=== PATIENT | male | born 1980 | race Caucasian/White ===

== ENCOUNTER 2016-08-27 08:17 | Emergency (ER) | payer SELFPAY ==
[~2016-08-27 08:17] MED LIST: ACYCLOVIR400 MG PO; AMOXICILLIN500 M3 PO; AMOXICILLIN500 MG PO; ANAPROX DS550 MG PO; ATIVAN1 MG PO; DOXYCYCLINE MO100 MG PO; FLONASE 0.05% 121 EA NAS; FLONASE ALLERG9.9 ML NAS; FLONASE0.05 MG/AC NS; IBU-8800 MG PO; MOTRIN800 MG PO; Motrin,Rufen800 MG PO; NKHM; PHENERGAN W/ DE30 ML PO; PHENERGAN W/CO120 ML PO; PREDNICOT10 MG PO; PREDNICOT20 MG PO; PREDNISONE10 MG PO; ROBITUSSIN AC 110 ML PO; ZANTAC 150150 MG PO; ZITHROMAX Z PA250 MG PO
[2016-08-27] MEDS ORDERED: PREDNISONE50 MG PO (08:43)
== END 2016-08-27 09:20 | disposition home or self-care (01) ==
LOC: ED 08:17
DX: S16.1XXA Strain of muscle, fascia and tendon at neck level, initial encounter (principal); X58.XXXA Exposure to other specified factors, initial encounter; Y93.89 Activity, other specified; Y92.89 Other specified places as the place of occurrence of the external cause; Y99.9 Unspecified external cause status

== ENCOUNTER 2018-03-07 14:10 | Emergency (ER) | payer OTHER ==
[~2018-03-07] VITALS: Ht 177.8 cm; Wt 103.9 kg
[~2018-03-07 14:10] MED LIST changes: +PREDNISONE50 MG PO
== END 2018-03-07 15:42 | disposition home or self-care (01) ==
LOC: ED 14:10
DX: S01.511A Laceration without foreign body of lip, initial encounter (principal); W21.03XA Struck by baseball, initial encounter; Y93.89 Activity, other specified; Y92.89 Other specified places as the place of occurrence of the external cause; Y99.8 Other external cause status

== ENCOUNTER 2018-12-20 18:01 | Emergency (ER) | payer OTHER ==
[~2018-12-20] VITALS: Ht 180.3 cm; Wt 108.0 kg
[2018-12-20] MEDS ORDERED: OMEPRAZOLE40 MG PO (18:04)
[2018-12-20] MEDS ORDERED: PROVENTIL HFA6.7 GM INH (20:02)
[2018-12-20] MEDS ORDERED: ZYRTEC10 MG PO (20:02)
[2018-12-20] MEDS ORDERED: PREDNISONE20 M1 PO (20:02)
[2018-12-20] MEDS ORDERED: AVPAK AZITHROM250 MG PO (20:02)
[2018-12-20] MEDS ORDERED: ROBITUSSIN DM 101 OZ PO (20:02)
== END 2018-12-20 20:03 | disposition home or self-care (01) ==
LOC: ED 18:01
DX: J20.9 Acute bronchitis, unspecified (principal); Z79.899 Other long term (current) drug therapy

== ENCOUNTER → 2024-08-26 | Outpatient (CLI) | payer OTHER ==
[~2024-08-26] MED LIST changes: +AVPAK AZITHROM250 MG PO; +OMEPRAZOLE40 MG PO; +PREDNISONE20 M1 PO; +PROVENTIL HFA6.7 GM INH; +ROBITUSSIN DM 101 OZ PO; +ZYRTEC10 MG PO
[2024-08-26 11:16] LABS: BASO % 0.7 % (0.0-1.0); EOS # 0.1 10*3/uL (0.0-0.4); EOS % 1.1 % (1.0-4.0); HEMATOCRIT 44.7 % (42.0-52.0); MEAN CELL VOLUME 89.9 fl (80.0-94.0); MEAN CORPUSCULAR HGB 30.4 pg (27.0-31.0); MEAN CORPUSCULAR HGB CONC 33.8 g/dl (33.0-37.0); MEAN PLATELET VOLUME 10.6 fl (9.6-12.3); MONO # 0.4 10*3/uL (0.1-1.0); MONO % 7.6 % (3.0-9.0); NEUT # 3.8 10*3/uL (2.3-7.9); NEUT % 69.7 % (47.0-73.0); PLATELET COUNT AUTOMATED 174 10*3/uL (130-400); RED BLOOD COUNT 4.97 10*6/uL (4.50-5.90); RED CELL DISTRI WIDTH 12.7 % (0-14.5); RETICULOCYTE % 1.05 % (0.50-2.50); WHITE BLOOD COUNT 5.5 10*3/uL (4.8-10.8)
[2024-08-26 11:20] LABS: BILIRUBIN Negative (Negative); BLOOD Negative (Negative); CLARITY Clear (Clear); COLOR Yellow (Yellow); GLUCOSE Negative (Negative); KETONE Negative (Negative); LEUKO ESTERASE Negative (Negative); NITRITE Negative (Negative); PH 5.5 (4.5-8.0); SPECIFIC GRAVITY 1.025 (1.001-1.030); UROBILINOGEN 0.2 E.U./dl (0.0-1.0)
[2024-08-26 11:48] LABS: RBC 0-2 rbc/hpf (0-2)
[2024-08-26 11:49] LABS: BACTERIA TRACE
[2024-08-26 11:56] LABS: ALKALINE PHOSPHATASE 72 U/L (46-116); BUN 20 mg/dl (9-23); CHLORIDE 105 mmol/L (98-107); CHOLESTEROL 166 mg/dL (<200); GAMMA GLUTAMYL TRANSPEPTIDASE 13 U/L (0-73); LDL CHOLESTEROL 94 mg/dL (9-159); SGPT/ALT 17 U/L (5-49); T3 UPTAKE 33.2 % (22.4-36.7); THYROXINE (T4) TOTAL 7.5 ug/dl (4.5-10.9); TOTAL PROTEIN 7.6 gm/dL (6.0-8.0); TRIGLYCERIDES 148 mg/dl (<150)
[2024-08-27 05:04] LABS: HBsAG SCREEN Negative (Negative); HCV Ab Non Reactive (Non Reactive); HEP B CORE Ab, IgM Negative (Negative)
== END | disposition home or self-care (01) ==
LOC: LAB 10:44
PROVIDERS: ATTEND Family Medicine
DX: E55.9 Vitamin D deficiency, unspecified (principal); R79.89 Other specified abnormal findings of blood chemistry; R53.83 Other fatigue; R74.8 Abnormal levels of other serum enzymes